=== PATIENT | male | born 1980 | race Caucasian/White ===

== ENCOUNTER 2019-09-30 19:28 | Emergency (ER) | payer SELFPAY ==
--- NOTE | ~2019-09-30 | XR_ITS ---
EXAMINATION: XR hand LT min 3V EXAM DATE: 09/30/2019 19:53 INDICATION: Initial encounter following injury, with pain of the left thumb. TECHNIQUE: Left hand frontal, lateral and oblique projections obtained and reviewed. There is no gerald or study for comparison. FINDINGS: Left metacarpal bones are unremarkable. There are no acute fractures or dislocations ident ified. There is no subcutaneous gas. The soft tissue is unremarkable. There are no radiopaque for eign bodies. IMPRESSION: No acute osseous findings. Reviewed, dictated and finalized at location A. IMPRESSION: No acute osseous findings.
[2019-09-30 19:33] VITALS: BP 150/99; PULSE 103; RESP 18; TEMP 36.7; O2SAT 94
--- NOTE | 2019-09-30 19:55 | ED.WOUNDLAC ---
HPI - Wound/Laceration General Chief Complaint: Wound/Laceration Stated Complaint: left thumb lac Time Seen by Provider: 09/30/19 19:39 Source: patient Mode of arrival: ambulatory Limitations: no limitations History of Present Illness HPI narrative: This is a 39 year old male that presents to the ER for laceration to left thumb sustained by saw just prior to arrival. He is not up to date on tetanus. Reports pain and bleeding to the area. Denies decreased ROM or numbness. Related Data Home Medications Medication Instructions Recorded Confirmed omeprazole 40 mg PO DIRECTED PRN 05/12/19 05/12/19 Allergies Allergy/AdvReac Type Severity Reaction Status Date / Time No Known Allergies Allergy Unverified 12/03/15 10:46 Review of Systems Review of Systems: Narrative: CONSTITUTIONAL: Denies fever SKIN: Reports laceration MUSCULOSKELETAL: Denies joint pain, or myalgia. NEUROLOGIC: Denies numbness All systems reviewed & are unremarkable except as noted in HPI and below PMFSH Past Medical History Medical History (Updated 09/30/19 @ 20:48 by Jill Wilder PA-C) GERD (gastroesophageal reflux disease) History of atrial fibrillation PUD (peptic ulcer disease) Tobacco abuse Surgical History Surgical History History of neck surgery Social History Social History Smoking packs per day: 1 Smoking cigarettes per day: 20.0 Years smoked: 20 Smoking pack-years: 20.00 Smoking status: Heavy tobacco smoker Tobacco type: cigarettes Second hand tobacco smoke exposure: Yes Alcohol intake: current Drinks per week: 2 Substance use: never Gender identity (if verbalized by the patient): Male Spiritual care concerns: No Agree to blood products: Yes Exam Narrative: Exam Narrative: GENERAL: Well-appearing, well-nourished, and in no acute distress. HEAD: Normocephalic, atraumatic. EYES: EOMI. EXTREMITIES: Normal range of motion. No edema. Left 1st finger dorsal surface of proximal phalanx with 1.5cm linear laceration into subcutaneous tissue. Tendon is visualized and is intact SKIN: Warm, dry, no rash. NEURO: No focal deficits. Alert and oriented x3. PSYCH: Normal mood and affect Course Vital Signs Vital signs: Vital Signs Temperature 98.1 F 09/30/19 19:33 Pulse Rate 103 H 09/30/19 19:33 Respiratory Rate 18 09/30/19 19:33 Blood Pressure 150/99 H 09/30/19 19:33 Pulse Oximetry 94 09/30/19 19:33 Temperature 98.1 F 09/30/19 19:33 Pulse Rate 103 H 09/30/19 19:33 Respiratory Rate 18 09/30/19 19:33 Blood Pressure 150/99 H 09/30/19 19:33 Pulse Oximetry 94 09/30/19 19:33 Procedures Laceration Laceration 1: Date: 09/30/19 Time: 20:46 Site: hand Side (If applicable): left Size (cm): 1.5 Description: linear Depth: simple, single layer Local Anesthetic: lidocaine 1% Amount of anesthesia used (mL): 2 Pre-repair: irrigated extensively ====== Skin Level ====== Skin layer closed with: nylon Size (cm): 5-0 Number of sutures: 4 Technique: simple, interrupted ====== Subcutaneous Layer ====== ====== Muscle Layer ====== ====== Tendon Layer ====== Dressing: Covered with antibiotic ointment, Telfa, Kerlix and Coban MDM - Wound/Laceration MDM Narrative Medical decision making narrative: Patient presents the emergency department for laceration to the left first finger dorsal surface. Laceration is into the subcutaneous tissue, tendon is visualized and is intact. He has normal range of motion in the finger. Left hand x-rays without acute changes. Patient's wound was irrigated and closed with sutures. Patient and family were educated on wound care. He was updated on tetanus. He is to follow-up with primary care doctor. He was given warnings to return to the ER Imaging Data Radiologist's impress
== END 2019-09-30 21:11 | disposition home or self-care (01) ==
PROVIDERS: Emergency Provider Emergency Medicine; PCP Family Medicine
DX: S61.012A Laceration without foreign body of left thumb without damage to nail, initial encounter (principal); W27.0XXA Contact with workbench tool, initial encounter; Z23 Encounter for immunization
CPT/HCPCS: 12001; 73130; 90471; 90715; 99283

== ENCOUNTER 2021-06-17 22:35 | Emergency (ER) | payer OTHER, SELFPAY ==
[2021-06-17 23:03] VITALS: BP 150/108; PULSE 96; RESP 18; TEMP 36.4; O2SAT 99
[2021-06-17 23:57] VITALS: BP 143/87; PULSE 94; RESP 14; TEMP 36.7; O2SAT 97
--- NOTE | 2021-06-18 01:36 | ED.GENADULT ---
HPI - General Adult General Chief complaint: Wound/Laceration Stated complaint: Groin injury, bleeding heavily Time Seen by Provider: 06/18/21 00:58 History of Present Illness HPI narrative: Patient is a 41-year-old gentleman who presents the emergency department with chief complaint of bleeding from wart excision site. The patient states he saw his primary care physician and they did a excision of a wart/skin tag. Patient states that it was cut that it was frozen reports he is that he has had bleeding since the procedure. The patient reports he is tried direct pressure without relief. Has gone through multiple dressings and continues to bleed. Related Data Home Medications Medication Instructions Recorded Confirmed omeprazole 40 mg PO DIRECTED PRN 05/12/19 05/12/19 Allergies Allergy/AdvReac Type Severity Reaction Status Date / Time No Known Allergies Allergy Unverified 12/03/15 10:46 Review of Systems Review of Systems: A 10 system review of systems was completed on the patient and is negative except for what is stated in the HPI. Nursing and ancillary documentation was reviewed. [facility] Past Medical History Medical History GERD (gastroesophageal reflux disease) History of atrial fibrillation PUD (peptic ulcer disease) Tobacco abuse Surgical History Surgical History History of neck surgery Family History Family History Other Acute Crohn's disease Cerebrovascular accident Colon cancer Diabetes mellitus Lung cancer Social History Social History Smoking packs per day: 1 Smoking cigarettes per day: 20.0 Years smoked: 20 Smoking pack-years: 20.00 Smoking status: Heavy tobacco smoker Tobacco type: cigarettes Second hand tobacco smoke exposure: Yes Alcohol intake: current Drinks per week: 2 Substance use: never Gender identity (if verbalized by the patient): Male Spiritual care concerns: No Agree to blood products: Yes Exam Narrative: GENERAL: Well-appearing, well-nourished, and in no acute distress. HEAD: Normocephalic, atraumatic. EYES: PERRLA and EOMI. ENT: Nares clear, no rhinorrhea or epistaxis. Mucous membranes moist. NECK: Supple. CHEST: Clear to auscultation. No respiratory distress. HEART: Regular rate and rhythm. No murmur heard. Normal peripheral pulses. ABDOMEN: Soft, nontender, nondistended, normal active bowel sounds. EXTREMITIES: Normal range of motion. No edema. SKIN: Warm, dry, no rash. There is a circular wound in the left suprapubic region that is bleeding NEURO: No focal deficits. Alert and oriented x3. PSYCH: Normal mood and affect. Course Vital Signs Vital signs: Vital Signs Temperature 36.4 C L 06/17/21 23:03 Pulse Rate 96 06/17/21 23:03 Respiratory Rate 18 06/17/21 23:03 Blood Pressure 150/108 H 06/17/21 23:03 Pulse Oximetry 99 06/17/21 23:03 Temperature 36.7 C 06/17/21 23:57 Pulse Rate 94 06/17/21 23:57 Respiratory Rate 14 06/17/21 23:57 Blood Pressure 143/87 H 06/17/21 23:57 Pulse Oximetry 97 06/17/21 23:57 Procedures Laceration Laceration 1: Date: 06/18/21 Time: 01:38 Site: other (Suprapubic area) Size (cm): 0.5 Description: other (Circular wound) Depth: simple, single layer Local Anesthetic: lidocaine 1% and with epi Amount of anesthesia used (mL): 2 ====== Skin Level ====== Skin layer closed with: nylon Size (cm): 4-0 Number of sutures: 1 Technique: other (Purse string) ====== Subcutaneous Layer ====== ====== Muscle Layer ====== ====== Tendon Layer ====== Medical Decision Making Vital Signs Vital Signs: Vital Signs Temperature 3
[2021-06-18 01:46] VITALS: BP 141/100; PULSE 88; RESP 16; O2SAT 98
== END 2021-06-18 01:48 | disposition home or self-care (01) ==
PROVIDERS: Emergency Provider Emergency Medicine; PCP Family Medicine
DX: L76.21 Postprocedural hemorrhage of skin and subcutaneous tissue following a dermatologic procedure (principal); K21.9 Gastro-esophageal reflux disease without esophagitis; I48.91 Unspecified atrial fibrillation; Z87.11 Personal history of peptic ulcer disease; F17.210 Nicotine dependence, cigarettes, uncomplicated
CPT/HCPCS: 12001; 99282

== ENCOUNTER 2022-02-17 12:06 | Emergency (ER) | payer OTHER, SELFPAY ==
[2022-02-17 12:15] VITALS: BP 161/94; PULSE 83; RESP 16; TEMP 36.3; O2SAT 99
--- NOTE | 2022-02-17 12:33 | ED.SKABFB ---
HPI - Skin/Abscess/Foreign Bdy General Chief complaint: Skin/Abscess/Foreign Body Stated complaint: left foot pain/non healing wound Time Seen by Provider: 02/17/22 12:33 Source: patient Mode of arrival: ambulatory Limitations: no limitations History of Present Illness HPI narrative: 42 y/o male presented for c/o rash to left foot for about 6 weeks. Endorses the bottom of 2nd toe and 3-5 toes with redness swelling and scaly skin. Has been using athletes foot cream. Denies other locations of skin lesions. Related Data Home Medications Medication Instructions Recorded Confirmed omeprazole 40 mg capsule,delayed 40 mg PO DIRECTED PRN Acid 05/12/19 02/17/22 release Reflux Allergies Allergy/AdvReac Type Severity Reaction Status Date / Time No Known Allergies Allergy Verified 02/17/22 12:19 Review of Systems Review of Systems: CONSTITUTIONAL: Denies body aches, fever, chills, or sweats. EYES: Denies visual changes, redness, or discharge. ENT: Denies rhinorrhea, congestion CARDIOVASCULAR: Denies chest pain, palpitations, or edema. RESPIRATORY: Denies cough or dyspnea. SKIN: reports redness/rash to foot MUSCULOSKELETAL: Denies back pain, joint pain, or myalgia. NEUROLOGIC: Denies headache PMFSH Past Medical History Medical History GERD (gastroesophageal reflux disease) History of atrial fibrillation PUD (peptic ulcer disease) Tobacco abuse Surgical History Surgical History History of neck surgery Family History Family History Other Acute Crohn's disease Cerebrovascular accident Colon cancer Diabetes mellitus Lung cancer Social History Social History Smoking packs per day: 1 Smoking cigarettes per day: 20.0 Years smoked: 20 Smoking pack-years: 20.00 Smoking status: Heavy tobacco smoker Tobacco type: cigarettes Second hand tobacco smoke exposure: Yes Alcohol intake: current Drinks per week: 2 Substance use: never Gender identity (if verbalized by the patient): Male Spiritual care concerns: No Agree to blood products: Yes Comments At time of signature, I have reviewed and agree with nursing past medical, surgical, social and family history unless otherwise noted. Please see nursing chart for further information. There is no relevant family history pertinent to the presenting complaint Exam Narrative: GENERAL: Well-appearing EYES: conjunctivae clear, and EOMI. ENT: Mucous membranes moist. Oropharynx without edema, erythema or lesions. CHEST: Clear to auscultation. HEART: Regular rate and rhythm. SKIN: Left foot 2nd digit plantar surface with scaly excoriated area; 3rd-5th digits and lateral aspect of the 5th metatarsal area with mild swelling, macerated skin between toes, scaly skin and excoriated areas c/w cellulitis 2/2 tinea pedis NEURO: Alert and oriented x3. Course Course Emergency Course: Patient is aware of diagnosis, understands and agrees to treatment plan. Anticipatory guidance given. Patient agrees to follow-up as directed and is aware of reasons to seek care at the emergency department. Portions of this record may have been created with voice recognition software Level of Care: Express Care Visit Vital Signs Vital signs: Vital Signs Temperature 97.3 F L 02/17/22 12:15 Pulse Rate 83 02/17/22 12:15 Respiratory Rate 16 02/17/22 12:15 Blood Pressure 161/94 H 02/17/22 12:15 Pulse Oximetry 99 02/17/22 12:15 Oxygen Delivery Room Air 02/17/22 12:15 Temperature 97.3 F L 02/17/22 12:15 Pulse Rate 83 02/17/22 12:15 Respiratory Rate 16 02/17/22 12:15 Blood Pressure 161/94 H 02/17/22 12:15 Pulse Oximetry 99 02/17/22 12:15 Oxygen Delivery Room Air 02/17/22 12:15 Reviewed MDM
== END 2022-02-17 12:47 | disposition home or self-care (01) ==
PROVIDERS: Emergency Provider Nurse Practitioner Family; PCP Family Medicine
DX: B35.3 Tinea pedis (principal); L03.116 Cellulitis of left lower limb; F17.210 Nicotine dependence, cigarettes, uncomplicated; K21.9 Gastro-esophageal reflux disease without esophagitis; I48.91 Unspecified atrial fibrillation
CPT/HCPCS: 99213; G0463

== ENCOUNTER 2022-06-07 00:53 | Day surgery (SDC) | payer OTHER, SELFPAY ==
[2022-06-06 10:06] VITALS: BMI 31.1
--- NOTE | 2022-06-06 13:24 | PM.HPGS ---
History of Present Illness History of Present Illness Consent: Risks, benefits, and alternatives have been discussed and questions answered. Patient agrees to proceed with procedure. Chief complaint: gerd, rectal bleeding, change in bowel habits Narrative: Kg Cedeño is a 42 year old male who has a history of gastritis with gastric ulcers and now increased nausea and acid reflux despite PPI use. ? He had EGD back in 2016 with findings of reflux esophagitis, gastritis with gastric ulcers. biopsies were negative for H pylori. Negative for celiac disease. He was started on omeprazole 40 mg daily. Currently takes omeprazole 20 mg daily with few missed doses. ? The past couple months with increasing acid reflux and nausea. ? States symptoms tend to be worse after eating spicy foods.? He denies any vomiting, dysphagia or odynophagia. ? He does complain of significant bloating and generalized abdominal discomfort after eating.? He does not associated bloating with any particular food. Bloating does not improve with BM. He is not bloating in the morning when he wakes up. ? Does report alternating diarrhea and constipation.? This is not new either.? for the past 2 years with intermittent bright red blood per rectum with bowel movements only. ? States rectal bleed will last 1-2 days then resolved. Review of Systems Review of Systems: All systems reviewed & are unremarkable except as noted in HPI and below PMFSH Past Medical History Medical History GERD (gastroesophageal reflux disease) History of atrial fibrillation PUD (peptic ulcer disease) Tobacco abuse Surgical History Surgical History History of neck surgery Family History Family History Other Acute Crohn's disease Cerebrovascular accident Colon cancer Diabetes mellitus Lung cancer Social History Social History Smoking packs per day: 1 Smoking cigarettes per day: 20.0 Years smoked: 15 Smoking pack-years: 15.00 Smoking status: Current every day smoker Tobacco type: cigarettes Second hand tobacco smoke exposure: Yes Alcohol intake: current Drinks per week: 12 Alcohol use details: BEER Substance use: never Substance use type: does not use Living arrangements: with family Gender identity (if verbalized by the patient): Male Spiritual care concerns: No Agree to blood products: Yes Meds Home Medications and Allergies Home Medications Medication Instructions Recorded Confirmed Type omeprazole 40 mg capsule,delayed 40 mg PO DAILY 05/12/19 06/06/22 History release dicyclomine 20 mg tablet 20 mg PO TID PRN abdominal 04/13/22 06/06/22 Rx discomfort #90 tabs metoprolol succinate 25 mg 25 mg PO DAILY 06/06/22 06/06/22 History tablet,extended release 24 hr Allergies Allergy/AdvReac Type Severity Reaction Status Date / Time No Known Allergies Allergy Verified 06/07/22 08:46 Exam Const: General: alert Orientation/consciousness: patient oriented x3 Resp: Auscultation: clear to auscultation bilaterally Cardio: Rhythm: regular rhythm GI: GI Palp: Yes Soft to palpation and No Tenderness to palpation present (GI) Neuro: General: patient oriented x3 Assessment and Plan Assessment and plan (1) GERD (gastroesophageal reflux disease): Code(s): K21.9 - Gastro-esophageal reflux disease without esophagitis Status: Acute Assessment and Plan: EGD with possible biopsy or dilatation or cautery. (2) Blood in stool: Code(s): K92.1 - Melena Status: Acute Assessment and Plan: Colonoscopy with possible biopsy or polypectomy or cautery or injection of substances.
[2022-06-07 08:48] VITALS: BP 120/72; PULSE 80; RESP 18; TEMP 36.6; O2SAT 100
[2022-06-07] MEDS: LACTATED RINGERS 1,000 ML 150 ML IV CONT (09:00)
--- NOTE | 2022-06-07 09:33 | WPDANESEPPF ---
Anes - Initial Pre Proc Eval Procedure: Operation Date: 06/07/22 10:15 Proposed Procedures p Esophagogastroduodenoscopy & Colonoscopy - Seymour Jacobs MD Date/Time: 06/07/22 09:33 Surgeon: Seymour Jacobs MD Pre Op Diagnosis: gerd, rectal bleeding, change in bowel habits Patient Data Age: 42 Gender: M Height: 1.83 m Weight: 108.4 kg Last Vital Signs Temp 97.8 F 06/07/22 08:48 Pulse 80 06/07/22 08:48 Resp 18 06/07/22 08:48 BP 120/72 06/07/22 08:48 Pulse Ox 100 06/07/22 08:48 O2 Del Method Room Air 06/07/22 08:48 Allergies Allergy/AdvReac Type Severity Reaction Status Date / Time No Known Allergies Allergy Verified 06/07/22 08:46 Home Medications Medication Instructions Recorded Confirmed Type omeprazole 40 mg capsule,delayed 40 mg PO DAILY 05/12/19 06/06/22 History release dicyclomine 20 mg tablet 20 mg PO TID PRN abdominal 04/13/22 06/06/22 Rx discomfort #90 tabs metoprolol succinate 25 mg 25 mg PO DAILY 06/06/22 06/06/22 History tablet,extended release 24 hr Patient hx anesthesia problems: none Family hx anesthesia problems: none Results Review: All pre-operative results and documents have been reviewed as part of the pre-operative evaluation. [facility] Past Medical History Medical History GERD (gastroesophageal reflux disease) History of atrial fibrillation PUD (peptic ulcer disease) Tobacco abuse Surgical History Surgical History History of neck surgery Family History Family History Other Acute Crohn's disease Cerebrovascular accident Colon cancer Diabetes mellitus Lung cancer Social History Social History Smoking packs per day: 1 Smoking cigarettes per day: 20.0 Years smoked: 15 Smoking pack-years: 15.00 Smoking status: Current every day smoker Tobacco type: cigarettes Second hand tobacco smoke exposure: Yes Alcohol intake: current Drinks per week: 12 Alcohol use details: BEER Substance use: never Substance use type: does not use Living arrangements: with family Gender identity (if verbalized by the patient): Male Spiritual care concerns: No Agree to blood products: Yes Anes - Eval Final PreProcedure Day of Procedure 06/07/22 09:33 Patient weight: obese Heart: regular rate and rhythm Lungs: clear to auscultation Airway: Mallampati scale class II Neurological: alert and oriented Last oral intake: >/= 8 hours ASA classification: III Emergent: no Anesthetic plan: proceed Anesthesia type and monitoring: general GIVS and standard monitoring Results Review: All pre-operative results and documents have been reviewed as part of the pre-operative evaluation. Informed Consent: The patient's anesthetic plan and its attendant risks and benefits were discussed with the patient/family/POA. Questions were solicited and answers provided to the satisfaction of the patient/family/POA.
--- NOTE | 2022-06-07 09:45 | SUR.OPER ---
EGD start 940 end 943, Colonoscopy start 948 end 958
[2022-06-07 10:02] VITALS: BP 114/70; PULSE 75; RESP 19; O2SAT 96
[2022-06-07 10:12] VITALS: BP 111/68; PULSE 73; RESP 18; O2SAT 96
[2022-06-07 10:22] VITALS: BP 121/66; PULSE 72; RESP 19; O2SAT 97
--- NOTE | 2022-06-07 10:31 | SUR.PHASEII ---
pt ready for discharge but his girlfriend will be another 20 minutes before she can pick him up. she will call when she is at hospital.
== END 2022-06-07 11:03 | disposition home or self-care (01) ==
PROVIDERS: PCP Family Medicine; Visit Provider Internal Medicine Gastroenterology
PROC: 0DJ08ZZ Inspection of Upper Intestinal Tract, Via Natural or Artificial Opening Endoscopic (ICD-10-PCS; CPT 43235; principal; 2022-06-07 10:15)
DX: K62.5 Hemorrhage of anus and rectum (principal); R19.4 Change in bowel habit; D12.8 Benign neoplasm of rectum; K57.30 Diverticulosis of large intestine without perforation or abscess without bleeding; K64.8 Other hemorrhoids; K21.9 Gastro-esophageal reflux disease without esophagitis; Z87.11 Personal history of peptic ulcer disease; F17.210 Nicotine dependence, cigarettes, uncomplicated; E66.9 Obesity, unspecified; Z68.32 Body mass index [BMI] 32.0-32.9, adult
CPT/HCPCS: 45380; 43239; 88305; J2704; J7120

== ENCOUNTER 2023-03-31 18:59 | Emergency (ER) | payer OTHER, SELFPAY ==
[2023-03-31] VITALS (9 sets, daily range): BP systolic 143–149; BP diastolic 95–111; PULSE 59–80; RESP 15–21; TEMP 36.6; O2SAT 98–100
--- NOTE | ~2023-03-31 | XR_ITS ---
EXAMINATION: XR chest 2V Exam Date/Time: 03/31/2023 19:38 CDT HISTORY: chest pain Comparison: None. RESULT: Lines, tubes, and devices: None. Lungs and pleura: Clear. Cardiomediastinal silhouette: Unremarkable. Other: No acute osseous or upper abdominal finding. IMPRESSION: No acute cardiopulmonary process. Reviewed, dictated and finalized at location K.
--- NOTE | ~2023-03-31 | CT_ITS ---
EXAMINATION: CTA brain carotid DATE: 04/01/2023 01:11 INDICATION: Left-sided numbness, dizziness, gait disturbance TECHNIQUE: Computed tomographic angiography (CTA) of the head was performed with 100 mL Omnipaque-350 intravenous contrast. CTA of the neck was performed with intravenous contrast. The dose-length produ ct was 1265.52 mGy-cm. Maximum intensity projection and volume rendered 3D-reconstructions were creat ed by the technologist on a separate workstation. Automated exposure control and iterative reconstruc tion technique were employed. COMPARISON: None. FINDINGS: HEAD CTA: There is no intracranial hemorrhage, acute infarction, or abnormal mass lesion. The ventric les are normal. There is no abnormal mass effect or midline shift. The leavitt-white matter differentiat ion is normal. The basal cisterns are patent. The orbits are normal. The paranasal sinuses, mastoids and calvarium are normal. There is no significant stenosis of the basilar artery or posterior cerebral arteries. There is no si gnificant stenosis of the intracranial internal carotid arteries or the anterior or middle cerebral a rteries. The anterior communicating artery and posterior communicating arteries are normal. There is no aneurysm. NECK CTA: The thyroid gland is unremarkable. The submandibular and parotid glands are symmetric. Ther e is no lymphadenopathy. There are no masses identified. The airway is unremarkable. The superior med iastinum is unremarkable. An interbody devices present at C5-6. 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 The right vertebral artery is diminutive. There is 0% stenosis of the proximal right internal carotid artery relative to normal distal artery l umen diameter (NASCET criteria). There is 0% stenosis of the proximal left internal carotid artery re lative to normal distal artery lumen diameter. IMPRESSION: 1. No acute intracranial abnormality. Normal head CTA. 2. 0% stenosis of the proximal right internal carotid artery relative to normal distal artery lumen d iameter (NASCET criteria). 3. 0% stenosis of the proximal left internal carotid artery relative to normal distal artery lumen di ameter. Reviewed, dictated and finalized at location F. IMPRESSION: 1. No acute intracranial abnormality. Normal head CTA. 2. 0% stenosis of the proximal right internal carotid artery relative to normal distal artery lumen diameter (NASCET criteria). 3. 0% stenosis of the proximal left internal carotid artery relative to normal distal artery lumen diameter.
--- NOTE | ~2023-03-31 | CT_ITS ---
EXAMINATION: CT brain wo con INDICATION: Left-sided numbness and dizziness COMPARISON: None TECHNIQUE: Standard unenhanced head CT. The dose-length product (DLP) was 605.33 mGy-cm. The mA was a djusted according to patient size. Iterative reconstruction technique was employed. FINDINGS: No intracranial hemorrhage, acute infarction, or abnormal mass lesion. The ventricles are n ormal. No abnormal mass effect or midline shift. The leavitt-white matter differentiation is normal. The basal cisterns are patent. The orbits are normal. The paranasal sinuses, mastoids and calvarium are normal. IMPRESSION: 1. No acute intracranial abnormality. Reviewed, dictated and finalized at location F.
--- NOTE | 2023-03-31 19:01 | ECG_ITS ---
Measurements Intervals [place] Rate: 82 P: 59 [place]: 140 QRS: 29 QRSD: 88 T: 31 QT: 359 QTc: 420 Interpretive Statements SINUS RHYTHM NORMAL ECG NO PREVIOUS ECG AVAILABLE FOR COMPARISON Electronically Signed On 03-31-2023 20:39:30 CDT by Fito Jay D.O.
[2023-03-31 19:33] LABS: Basophils Absolute Auto 0.1 K/mm3 (0.0-0.1); Basophils Percent Auto 0.6 % (0.2-1.2); Eosinophils Absolute Auto 0.3 K/mm3 (0-0.3); Eosinophils Percent Auto 3.9 % (0-4.4); Hematocrit 43.6 % (42.0-52.0); Hemoglobin 14.8 g/dL (14.0-18.0); Immature Granulocyte Absolute 0.03 K/mm3 (0.00-0.031); Immature Granulocyte Percent A 0.4 % (0-0.5); Lymphocytes Absolute Auto 2.22 K/mm3 (0.9-3.2); Lymphocytes Percent Auto 27.8 % (18.3-44.2); Mean Corpuscular HGB Conc 33.9 g/dl (32-36); Mean Corpuscular Hemoglobin 31.8 pg (26-34); Mean Corpuscular Volume 93.6 fl (80-100); Mean Platelet Volume 12.8 fl (7.4-10.4); Monocytes Absolute Auto 0.7 K/mm3 (0.1-0.6); Monocytes Percent Auto 9.3 % (2.6-8.5); Neutrophils Absolute Auto 4.6 K/mm3 (1.3-6.7); Platelet Count Result 199 k/mm3 (150-375); Red Blood Count 4.66 M/mm3 (4.6-6.20); Red Cell Distribution Width 13.1 % (11.5-14.5)
[2023-03-31 19:46] LABS: INR 0.9; Prothrombin Time 12.9 Seconds (11.1-14.7)
[2023-03-31 19:47] LABS: Partial Thromboplastin Time 24.6 SECONDS (22.3-36.8)
[2023-03-31] MEDS: ASPIRIN 81 MG CHEWABLE TABLET 324 MG PO (20:58)
--- NOTE | 2023-03-31 21:18 | ED.CHESTPAIN ---
HPI - Chest Pain General Chief Complaint: Chest Pain <JONO Singh Last Filed: 04/01/23 03:27> Stated Complaint: chest pain <JONO Singh Last Filed: 04/01/23 03:27> Time Seen by Provider: 03/31/23 20:56 <JONO Singh Last Filed: 04/01/23 03:27> Source: patient <JONO Singh Last Filed: 04/01/23 03:27> Mode of arrival: ambulatory <JONO Singh Last Filed: 04/01/23 03:27> Limitations: no limitations <JONO Singh Last Filed: 04/01/23 03:27> History of Present Illness HPI narrative: Patient is a 43 y/o male, with PMH of HTN, who presents to the ED with c/o multiple complaints. Over the last month or so, patient reports having intermittent episodes of midsternal chest pain. He also reports having intermittent episodes of dizziness, numbness/tingling in his left-sided body, feeling as though he is walking with a limp. He has not been evaluated for these symptoms. Today, he reports having constant tingling in his entire left side of his face and body since around 12 or 1 PM. He also reports having persistent chest tightness today with intermittent sharp stabbing pains. Pain radiates through to his back below his scapular region. Denies any significant aggravating or alleviating factors to the chest pain. He states his made him come to the ED today. He also complains of intermittent shortness of breath, intermittent upper abdominal cramping, nausea, denies any recent cough or cold symptoms, fevers, vomiting. He denies feeling weak in his left side or dropping things with his left arm. Denies slurred speech or confusion. Patient reports a history of atrial fibrillation many years ago. He was on anticoagulation for 6 months but is no longer on any. He has previously seen [facility] with cardiology. <JONO Singh Last Filed: 04/01/23 03:27> Related Data Home Medications: Home Medications Medication Instructions Recorded Confirmed omeprazole 40 mg capsule,delayed 40 mg PO DAILY 05/12/19 06/06/22 release metoprolol succinate 25 mg 25 mg PO DAILY 06/06/22 06/06/22 tablet,extended release 24 hr <Suri Kumari PA-C - Last Filed: 04/01/23 03:27> Allergies/Adverse Reactions: Allergies Allergy/AdvReac Type Severity Reaction Status Date / Time No Known Allergies Allergy Verified 06/07/22 08:46 <Suri Kumari PA-C - Last Filed: 04/01/23 03:27> Review of Systems Review of Systems: CONSTITUTIONAL: Denies fever, chills, or sweats. EYES: Denies visual changes, redness, or discharge. ENT: Denies rhinorrhea, congestion, sore throat. CARDIOVASCULAR: See HPI. RESPIRATORY: See HPI. GASTROINTESTINAL: See HPI. GENITOURINARY: Denies dysuria or hematuria. SKIN: Denies rash or itching. MUSCULOSKELETAL: Denies back pain, joint pain, or myalgia. NEUROLOGIC: See HPI. <Suri Kumari PA-C - Last Filed: 04/01/23 03:27> All systems reviewed & are unremarkable except as noted in HPI and below <Suri Kumari PA-C - Last Filed: 04/01/23 03:27> [facility] Past Medical History Medical History: Medical History GERD (gastroesophageal reflux disease) History of atrial fibrillation PUD (peptic ulcer disease) Tobacco abuse <Suri Kumari PA-C - Last Filed: 04/01/23 03:27> Surgical History Surgical History: Surgical History History of neck surgery <Suri Kumari PA-C - Last Filed: 04/01/23 03:27> Family History Family History: Family History Other Acute Crohn's disease Cerebrovascular accident Colon cancer Diabetes mellitus Lung cancer <Suri Kumari PA-C - Last Filed: 04/01/23 03:27>
[2023-03-31 22:14] LABS: D Dimer < 0.27 ug/mL (<0.48)
--- NOTE | 2023-03-31 23:19 | PC.NURSE ---
Report received from HORTENCIA Dempsey. Assumed care of patient at this time.
[2023-04-01] VITALS (10 sets, daily range): BP systolic 139; BP diastolic 91; PULSE 60–86; RESP 16–21; O2SAT 97–100
[2023-04-01 00:10] LABS: Alanine Aminotransferase 61 U/L (6-50); Albumin Level 4.2 g/dL (3.5-5.1); Alkaline Phosphatase 65 U/L (38-126); Anion Gap 7 mmol/L (8-16); Aspartate Amino Transferase 32 U/L (17-59); Bilirubin,Total 0.5 mg/dL (0.2-1.3); Blood Urea Nitrogen 16 mg/dL (9-20); Calcium 8.8 mg/dL (8.4-10.2); Carbon Dioxide 21 mmol/L (22-30); Chloride 109 mmol/L (98-107); Estimated CRCL calculation 92 ml/min; Estimated Glomerular Filt Rate > 60; Glucose 100 mg/dL (65-110); Lipase 106 U/L (23-300); Potassium 4.1 mmol/L (3.4-5.0); Sodium 137 mmol/L (137-145)
[2023-04-01 00:12] LABS: Troponin I < 0.012 ng/mL (0.000-0.034)
[2023-04-01 01:10] LABS: Magnesium 2.1 mg/dL (1.6-2.3); NT Pro B Type Natriuretic Pept 27 pg/mL (19.9-100)
[2023-04-01 03:40] LABS: Troponin I < 0.012 ng/mL (0.000-0.034)
== END 2023-04-01 05:38 | disposition home or self-care (01) ==
PROVIDERS: Emergency Medicine; Physician Assistant; Emergency Provider Preventive Medicine Aerospace Medicine; PCP Family Medicine
DX: R07.89 Other chest pain (principal); R20.2 Paresthesia of skin; K21.9 Gastro-esophageal reflux disease without esophagitis; F17.210 Nicotine dependence, cigarettes, uncomplicated; Z87.11 Personal history of peptic ulcer disease; R06.02 Shortness of breath
CPT/HCPCS: 36415; 70450; 70496; 70498; 71046; 80053; 83690; 83735; 83880; 84484; 85025; 85380; 85610; 85730; 93005; 99284; A9270; Q9967